=== PATIENT | female | born 1965 | race Caucasian/White ===

== ENCOUNTER 2020-01-04 13:33 | Outpatient (CLI) | payer BC, SELFPAY ==
--- NOTE | ~2020-01-04 | CT_ITS ---
EXAMINATION: CT abdomen pelvis w con DATE: 01/04/2020 14:00 INDICATION: Right lower quadrant abdominal pain. TECHNIQUE: Computed tomography (CT) of the abdomen and pelvis was performed with 100 mL Omnipaque 350 intravenous contrast. Automated exposure control and iterative reconstruction technique were employe d. The dose-length product was 436.51 mGy-cm. COMPARISON: None. FINDINGS: The visualized portions of the lung bases demonstrate minimal atelectasis. No pleural effus ion. The heart size is normal. No pericardial effusion. The liver, gallbladder, spleen, pancreas, adr enal glands, and kidneys are normal. There is diverticulosis of the colon without evidence of diverti culitis. There are no dilated loops of bowel. The appendix is normal. There are 2 supraumbilical vent ral hernias containing fat. There are no pathologically enlarged lymph nodes. There is no free intrap eritoneal fluid. There is moderate lumbar spondylosis. IMPRESSION: 1. Two supraumbilical ventral hernias containing fat. Reviewed, dictated and finalized at location A.
== END 2020-01-04 13:34 | disposition home or self-care (01) ==
PROVIDERS: PCP Family Medicine; Visit Provider Family Medicine
DX: K43.9 Ventral hernia without obstruction or gangrene (principal)
CPT/HCPCS: 74177; Q9967

== ENCOUNTER → 2020-01-22 07:58 | Outpatient (CLI) | payer BC, SELFPAY ==
--- NOTE | ~2020-01-22 | US_ITS ---
EXAMINATION: US pelvic complete EXAM DATE: 01/22/2020 10:13 INDICATION: Right lower quadrant pain. TECHNIQUE: Pelvic transabdominal and transvaginal sonogram was performed. There are multiple graysca le and Doppler images available for interpretation. There is no prior study for comparison. FINDINGS: Uterus measures 8.0 x 2.7 x 5.5 cm, and is morphologically normal. Endometrial stripe yaritza sures 4 mm, within normal limits. There is no free pelvic fluid. Right adnexa: The ovary measures 1.4 x 0.8 x 2.0 cm and is morphologically normal. Ovarian vascular f low confirmed. Left adnexa: The ovary measures 2.0 x 1.1 x 1.6 cm and is morphologically normal. Ovarian vascular fl ow confirmed. IMPRESSION: Unremarkable pelvic ultrasound exam. Reviewed, dictated and finalized at location A.
--- NOTE | ~2020-01-22 | US_ITS ---
EXAMINATION: US abdomen limited EXAM DATE: 01/22/2020 08:24 INDICATION: Right quadrant pain, tingling down leg. Nodules. TECHNIQUE: Multiple grayscale and Doppler images of the abdomen right upper quadrant were obtained (b y a technologist who performed the scan) and subsequently reviewed. There is no prior study for radha brownlee. FINDINGS: The pancreatic head and body are normal in appearance. The pancreatic tail is not visualized. The l iver has normal echogenicity and contour. There are no focal liver lesions identified. There is no evidence of intrahepatic biliary duct dilation. Portal venous flow was seen in the hepatopedal, nor mal direction and has normal Doppler waveform. No right-sided hydronephrosis. Common bile duct measures 3 mm, which is normal. The gallbladder wall is normal in thickness, with ex pected amount of distention. No sonographic evidence of pericholecystic fluid. There is no cholelit hiases. Technologist performing exam reports patient did not demonstrate sonographic Tillman's sign. Please note that this sign is less reliable in patients who have received pain medication. IMPRESSION: 1. Unremarkable abdominal ultrasound exam. Reviewed, dictated and finalized at location A.
== END ==
PROVIDERS: PCP Family Medicine; Visit Provider Family Medicine
DX: R10.31 Right lower quadrant pain (principal)
CPT/HCPCS: 76705; 76856

== ENCOUNTER 2020-02-10 16:15 | Emergency (ER) | payer BC, SELFPAY ==
--- NOTE | ~2020-02-10 | CT_ITS ---
EXAMINATION: CT abdomen pelvis w con EXAM DATE: 02/10/2020 20:19 INDICATION: Right sided abdominal and flank pain . TECHNIQUE: Spiral CT of the abdomen and pelvis was performed following intravenous injection of 100 m L Omnipaque 350. Axial, coronal and sagittal images were reviewed. The dose-length product (DLP) fo r this examination was 369.08 mGy-cm. The exposure was tailored according to patient size (auto mA e xposure control), and iterative reconstruction (ASIR) was used as additional dose reduction technique . Comparison is made to prior examination from 01/04/2020. FINDINGS: The liver, spleen, adrenal glands and pancreas are unremarkable. Gallbladder is unremarkab le. No biliary obstruction. Portal and splenic veins are patent. Kidneys enhance symmetrically. T here is no hydronephrosis. The uterus is unremarkable. The adnexa are unremarkable. The bladder is unremarkable. There is no retroperitoneal or pelvic lymphadenopathy. The appendix is normal. The stomach and small bowel are unremarkable. There is expected amount of c olonic stool. No free intraperitoneal gas. The heart is normal in size. There are no pericardial or pleural effusions. The lung bases are unremarkable. The bones are unremarkable. There are 2 sm all supraumbilical fat-containing hernias. There is no significant interval change. IMPRESSION: 1. No acute intra-abdominal findings. 2. Two small supraumbilical fat-containing hernias. Reviewed, dictated and finalized at location A.
[2020-02-10 16:36] LABS: Add Urine Microscopic? NO; Appearance Urine Clear (Clear); Bilirubin Urine Negative (Negative); Blood Urine Negative (Negative); Color Urine Colorless (Yellow); Glucose Urine UA Negative (Negative); Ketones Urine Negative (Negative); Leukocyte Esterase Ur Negative LEU/UL (Negative); Nitrate Urine Negative (Negative); Protein Urine Negative (Negative); Specific Grav Ur 1.006 (1.001-1.035); Urobilinogen Urine Negative mg/dL (<2.0)
[2020-02-10 16:42] VITALS: BP 135/89; PULSE 88; RESP 12; TEMP 36.2; O2SAT 99
[2020-02-10 16:57] LABS: Basophils Absolute Auto 0.1 K/mm3 (0.0-0.1); Basophils Percent Auto 0.8 % (0.2-1.2); Eosinophils Percent Auto 0.4 % (0-4.4); Hemoglobin 14.1 g/dL (12.0-15.0); Immature Granulocyte Absolute 0.02 K/mm3 (0.00-0.031); Immature Granulocyte Percent A 0.3 % (0-0.5); Lymphocytes Absolute Auto 2.26 K/mm3 (0.9-3.2); Lymphocytes Percent Auto 28.4 % (18.3-44.2); Mean Corpuscular HGB Conc 33.6 g/dl (32-36); Mean Corpuscular Hemoglobin 29.1 pg (26-34); Mean Corpuscular Volume 86.6 fl (80-100); Mean Platelet Volume 9.3 fl (7.4-10.4); Monocytes Absolute Auto 0.6 K/mm3 (0.1-0.6); Monocytes Percent Auto 7.3 % (2.6-8.5); Neutrophils Percent Auto 62.8 % (45.5-73.1); Platelet Count Result 305 k/mm3 (150-375); Red Blood Count 4.85 M/mm3 (4.2-5.4); Red Cell Distribution Width 12.6 % (11.5-14.5)
[2020-02-10 17:08] LABS: Alanine Aminotransferase 21 U/L (4-35); Albumin Level 4.8 g/dL (3.5-5.1); Alkaline Phosphatase 94 U/L (38-126); Anion Gap 9 mmol/L (8-16); Aspartate Amino Transferase 23 U/L (14-36); Bilirubin,Total 0.3 mg/dL (0.2-1.3); Blood Urea Nitrogen 12 mg/dL (7-17); Calcium 9.8 mg/dL (8.4-10.2); Carbon Dioxide 29 mmol/L (22-30); Chloride 98 mmol/L (98-107); Estimated CRCL calculation 66 ml/min; Estimated Glomerular Filt Rate > 60; Glucose 97 mg/dL (65-105); Lipase 71 U/L (23-300); Sodium 136 mmol/L (137-145)
[2020-02-10 18:03] VITALS: BP 127/78; PULSE 80; RESP 14; O2SAT 99
--- NOTE | 2020-02-10 18:11 | ED.ABDPAIN ---
HPI - Abdominal Pain General Chief Complaint: Abdominal Pain Stated Complaint: R ABD/FLANK PAIN Time Seen by Provider: 02/10/20 17:39 Source: patient Mode of arrival: ambulatory Limitations: no limitations History of Present Illness HPI narrative: Patient is a 54-year-old female who presents complaining of right-sided abdominal pain, flank pain, nausea and loose stools x2 months. She reports pain increasing in flank over the past week. She reports initially all abdominal cramping. She had CT and ultrasound per patient account which were negative. Patient denies vomiting. She denies fever. She denies taking stvl-orh-hdnejhd medications for pain. Patient reports that she has been awaiting referral from PCP to GI and reports pain increased so much today that she could not wait. MD elicited complaint: abdominal pain and flank pain Related Data Allergies Allergy/AdvReac Type Severity Reaction Status Date / Time No Known Allergies Allergy Verified 02/10/20 16:49 Review of Systems Review of Systems: Narrative: CONSTITUTIONAL: Denies fever, chills, or sweats. EYES: Denies visual changes, redness, or discharge. ENT: Denies rhinorrhea, congestion, sore throat, or otalgia. CARDIOVASCULAR: Denies chest pain, palpitations, or edema. RESPIRATORY: Denies cough or dyspnea. GASTROINTESTINAL: Reports right sided abdominal pain, nausea, and loose stools GENITOURINARY: Denies dysuria or hematuria. SKIN: Denies rash or itching. MUSCULOSKELETAL: Reports right back pain, denies joint pain, or myalgia. NEUROLOGIC: Denies headache, numbness, dizziness, or weakness. PSYCHIATRIC: Denies anxiety or depression. COUNTS INCLUDE 234 BEDS AT THE [facility] Past Medical History Medical History (Updated 02/10/20 @ 21:50 by JOHN Zapien) Emily's thyroiditis Mixed hyperlipidemia Personal history of colonic polyps Surgical History Surgical History Hx of tonsillectomy Family History Family History Mother Family history of thyroid disease Social History Social History Social History: Smoking status: Never smoker Second hand tobacco smoke exposure: No Alcohol intake: never Substance use: never Substance use type: does not use Additional occupation/education comments: pt works at home Gender identity (if verbalized by the patient): Female Exam Narrative: Exam Narrative: GENERAL: Well-appearing, well-nourished, and in no acute distress. HEAD: Normocephalic, atraumatic. EYES: No redness or drainage. Conjunctiva are normal. ENT: Mucous membranes pink and moist. CHEST: No respiratory distress. Clear to auscultation. HEART: Regular rate and rhythm. No murmur appreciated. Normal peripheral pulses. GI: Soft, nontender without rebound, or guarding. No distention. Bowel sounds normal in all quadrants. MUSCULOSKELETAL: No bony tenderness. EXTREMITIES: Normal range of motion. No edema. SKIN: Warm, dry, no rash. NEURO: No focal deficits. Alert and oriented x3. Gait steady. PSYCH: Normal affect. No signs of depression or anxiety. Course Vital Signs Vital signs: Vital Signs Temperature 36.2 C L 02/10/20 16:42 Pulse Rate 88 02/10/20 16:42 Respiratory Rate 12 02/10/20 16:42 Blood Pressure 135/89 02/10/20 16:42 Pulse Oximetry 99 02/10/20 16:42 Temperature 36.2 C L 02/10/20 16:42 Pulse Rate 74 02/10/20 21:00 Respiratory Rate 16 02/10/20 21:00 Blood Pressure 123/85 02/10/20 21:00 Pulse Oximetry 97 02/10/20 21:00 MDM - Abdominal Pain MDM Narrative Medical decision making narrative: Patients labs and CT scan show no gross abnormalities. Discussed with patient the need to follow-up with gastroenterology and orthopedics. Discussed with patient continuing with muscle relaxer that PCP gave her and adding Tylenol or ibuprofen for pain. April
--- NOTE | 2020-02-10 18:20 | ECG_ITS ---
Measurements Intervals [place] Rate: 64 P: 31 AL: 164 QRS: 22 QRSD: 87 T: -6 QT: 427 QTc: 441 Interpretive Statements SINUS RHYTHM BORDERLINE ST-T WAVE ABNORMALITY- ANTEROLAT/INF LEADS BORDERLINE ECG Electronically Signed On 02-10-2020 21:22:[address] D.O.
[2020-02-10] MEDS: SODIUM CHLORIDE 0.9% IV 1,000 ML 999 ML IV CONT (18:30)
[2020-02-10 18:54] LABS: Troponin I < 0.012 ng/mL (0.000-0.034)
[2020-02-10 20:09] VITALS: BP 131/76; PULSE 72; RESP 16; O2SAT 97
[2020-02-10 21:00] VITALS: BP 123/85; PULSE 74; RESP 16; O2SAT 97
[2020-02-10] MEDS: KETOROLAC 30 MG/ML VIAL (*BKC) IV PUSH (22:17)
[2020-02-10 22:25] VITALS: BP 127/79; PULSE 76; RESP 16; O2SAT 97
== END 2020-02-10 22:25 | disposition home or self-care (01) ==
PROVIDERS: Emergency Medicine; Emergency Provider Nurse Practitioner; PCP Family Medicine
DX: R10.9 Unspecified abdominal pain (principal); E06.3 Autoimmune thyroiditis; E78.2 Mixed hyperlipidemia; K42.9 Umbilical hernia without obstruction or gangrene; R94.31 Abnormal electrocardiogram [ECG] [EKG]
CPT/HCPCS: 36415; 74177; 80053; 81003; 83690; 84484; 85025; 93005; 96361; 96374; 99284; J1885; J7030; Q9967

== ENCOUNTER 2020-02-27 01:06 | Outpatient (CLI) | payer BC, SELFPAY ==
[2020-02-27 22:26] LABS: SARS-CoV-2 RNA PCR Negative
== END 2020-02-27 01:07 | disposition home or self-care (01) ==
LOC: ANHCOVIDDT 01:06
PROVIDERS: PCP Family Medicine; Visit Provider Internal Medicine Gastroenterology
DX: Z01.812 Encounter for preprocedural laboratory examination (principal); Z20.828 Contact with and (suspected) exposure to other viral communicable diseases
CPT/HCPCS: 87635; C9803; U0003

== ENCOUNTER 2020-03-02 01:02 | Day surgery (SDC) | payer BC, SELFPAY ==
[2020-02-25 15:10] VITALS: BMI 26.6
[2020-03-02 08:58] VITALS: BP 113/72; PULSE 74; RESP 18; TEMP 36.9; O2SAT 98; BMI 25.9
[2020-03-02] MEDS: LACTATED RINGERS 1,000 ML 150 ML IV CONT (09:05)
--- NOTE | 2020-03-02 09:20 | WPDANESEPPF ---
Anes - Initial Pre Proc Eval Procedure: Operation Date: 03/02/20 10:00 Proposed Procedures p Screening Colonoscopy - Sameer Fabian MD Date/Time: 03/02/20 09:20 Surgeon: Sameer Fabian MD Pre Op Diagnosis: neoplasm screening Patient Data Age: 54 Gender: F Height: 5 ft 6 in Weight: 73 kg Last Vital Signs Temp 36.9 C 03/02/20 08:58 Pulse 74 03/02/20 08:58 Resp 18 03/02/20 08:58 BP 113/72 03/02/20 08:58 Pulse Ox 98 03/02/20 08:58 Allergies Allergy/AdvReac Type Severity Reaction Status Date / Time No Known Allergies Allergy Verified 03/02/20 08:57 Home Medications Medication Instructions Recorded Confirmed Type levothyroxine 50 mcg tablet 50 mcg PO .COMPLEX #102 tablet 01/26/20 03/02/20 Rx calcium carb-Ca gluc 500 mg 1 tablet PO BID 02/22/20 02/25/20 History calcium-magnesium ox-Mg gluc 250 mg tablet cholecalciferol (vitamin D3) 25 25 mcg PO EVERY OTHER DAY 02/22/20 02/25/20 History mcg (1,000 unit) capsule omega-3 fatty acids 500 mg capsule 500 mg PO BID 02/22/20 02/25/20 History phytosterol combination no.1 500 500 mg PO DAILY 02/22/20 03/02/20 History mg capsule Glucosamine Chondroitin 2 tab-cap PO DAILY 02/25/20 02/25/20 History peg 3350-electrolytes 236 240 ml PO Q10M #4000 ml 02/25/20 Rx gram-22.74 gram-6.74 gram-5.86 gram solution Patient hx anesthesia problems: none Family hx anesthesia problems: none PMFSH Past Medical History Medical History Change in bowel habits Constipation Emily's thyroiditis Mixed hyperlipidemia Personal history of colonic polyps Surgical History Surgical History Hx of tonsillectomy Family History Family History Mother Family history of thyroid disease Social History Social History Social History: Smoking status: Never smoker Second hand tobacco smoke exposure: No Alcohol intake: current Substance use: never Substance use type: does not use Additional occupation/education comments: pt works at home Gender identity (if verbalized by the patient): Female Spiritual care concerns: No Anes - Eval Final PreProcedure Day of Procedure 03/02/20 09:20 Patient weight: overweight Heart: regular rate and rhythm Lungs: clear to auscultation Airway: Mallampati scale class II Neurological: alert and oriented Last oral intake: >/= 8 hours ASA classification: II Emergent: no Anesthetic plan: proceed Anesthesia type and monitoring: general GIVS and standard monitoring Informed Consent: The patient's anesthetic plan and its attendant risks and benefits were discussed with the patient/family/POA. Questions were solicited and answers provided to the satisfaction of the patient/family/POA.
--- NOTE | 2020-03-02 10:03 | WPDHPUPDATE1 ---
History and Physical Update Update Date/Time: 03/02/20 10:03 History and Physical has been reviewed, including an updated exam of the patient. There are NO changes in the patient's condition. Risks, benefits, and alternatives have been discussed and questions answered. Patient agrees to proceed with procedure.
[2020-03-02 10:28] VITALS: BP 96/68; PULSE 59; RESP 22; O2SAT 98
[2020-03-02 10:38] VITALS: BP 97/66; PULSE 54; RESP 16; O2SAT 97
[2020-03-02 10:48] VITALS: BP 102/70; PULSE 55; RESP 17; O2SAT 100
== END 2020-03-02 10:56 | disposition home or self-care (01) ==
PROVIDERS: PCP Family Medicine; Visit Provider Internal Medicine Gastroenterology
PROC: 0DJD8ZZ Inspection of Lower Intestinal Tract, Via Natural or Artificial Opening Endoscopic (ICD-10-PCS; CPT 45378; principal; 2020-03-02 10:00)
DX: R10.31 Right lower quadrant pain (principal); R19.7 Diarrhea, unspecified; K59.00 Constipation, unspecified; K57.30 Diverticulosis of large intestine without perforation or abscess without bleeding; K64.8 Other hemorrhoids; E06.3 Autoimmune thyroiditis; E78.2 Mixed hyperlipidemia; Z86.010 Personal history of colon polyps
CPT/HCPCS: 45378; J2001; J2704; J7120

== ENCOUNTER 2020-05-03 08:37 | Outpatient (CLI) | payer BC, SELFPAY ==
--- NOTE | ~2020-05-03 | MM_ITS ---
EXAMINATION: MM screening [facility] BI w ayaz HISTORY: Screening TECHNIQUE: Craniocaudal and mediolateral oblique 3-D tomosynthesis images were obtained and synthetic 2-D images were generated. CAD analysis was submitted and interpreted. COMPARISON: Comparison to multiple prior studies sequentially, with oldest reviewed study dated 11/18. BREAST PARENCHYMAL COMPOSITION: There are scattered areas of fibroglandular density. FINDINGS: There is focal asymmetry laterally in the right breast on CC view, possibly presenting arch itectural distortion. The left breast is stable without evidence for malignancy. IMPRESSION: 1. Possible architectural distortion lateral aspect of the right breast, middle third. 2. Additional mammographic views and possible breast ultrasound are recommended. BI-RADS Category 0: Incomplete: Needs additional imaging evaluation. Reviewed, dictated and finalized at location A. UREMENT SPECIALIST IMPRESSION: 1. Possible architectural distortion lateral aspect of the right breast, middle third. 2. Additional mammographic views and possible breast ultrasound are recommended . BI-RADS Category 0: Incomplete: Needs additional imaging evaluation.
== END 2020-05-03 08:38 | disposition home or self-care (01) ==
PROVIDERS: PCP Family Medicine; Visit Provider Family Medicine
DX: Z12.31 Encounter for screening mammogram for malignant neoplasm of breast (principal); R92.8 Other abnormal and inconclusive findings on diagnostic imaging of breast
CPT/HCPCS: 77063; 77067

== ENCOUNTER 2020-05-05 11:08 | Outpatient (CLI) | payer BC, SELFPAY ==
--- NOTE | ~2020-05-05 | MMUS_ITS ---
EXAMINATION: MM diagnostic mammo unilat RT, US breast RT limited HISTORY: Follow-up possible architectural distortion of the right breast TECHNIQUE: Additional 3-D tomosynthesis images of the right breast were performed and synthetic 2-D i mages were generated. CAD analysis was submitted and interpreted. High resolution right breast ultras ound was performed. COMPARISON: Comparison to multiple prior studies sequentially, with oldest reviewed study dated 01/20. BREAST PARENCHYMAL COMPOSITION: Breast composed of scattered areas of fibroglandular density. FINDINGS: MAMMOGRAPHIC FINDINGS: There are no suspicious masses, calcifications or architectural distortion in the right breast to sug gest malignancy. ULTRASOUND: Limited Limited right breast ultrasound: Normal heterogeneous echotexture without focal solid or cyst ic mass. IMPRESSION: 1. No mammographic or sonographic evidence for malignancy in the right breast. 2. Routine yearly screening mammogram and regular clinical breast examination are recommended. BI-RADS Category 1: Negative Reviewed, dictated and finalized at location A. 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 No mammographic or sonographic evidence for malignancy in the right breast. 2. Routine yearly screening mammogram and regular clinical breast examination a re recommended. BI-RADS Category 1: Negative
== END 2020-05-05 11:09 | disposition home or self-care (01) ==
PROVIDERS: PCP Family Medicine; Visit Provider Physician Assistant
DX: R92.8 Other abnormal and inconclusive findings on diagnostic imaging of breast (principal)
CPT/HCPCS: 76642; 77065

== ENCOUNTER → 2020-07-19 00:26 | Outpatient (CLI) | payer BC, SELFPAY ==
[2020-07-19 18:31] LABS: SARS-CoV-2 RNA PCR Negative
== END ==
PROVIDERS: PCP Family Medicine; Visit Provider Internal Medicine Gastroenterology
DX: Z01.812 Encounter for preprocedural laboratory examination (principal); Z20.822 Contact with and (suspected) exposure to COVID-19
CPT/HCPCS: C9803; U0003; U0005

== ENCOUNTER 2020-07-22 04:43 | Day surgery (SDC) | payer BC, SELFPAY ==
[2020-07-18 10:53] VITALS: BMI 26.5
[2020-07-22 09:08] VITALS: BP 113/78; PULSE 77; RESP 16; TEMP 36.8; O2SAT 100
[2020-07-22] MEDS: LACTATED RINGERS 1,000 ML 150 ML IV CONT (09:20)
--- NOTE | 2020-07-22 10:16 | WPDANESEPPF ---
Anes - Initial Pre Proc Eval Procedure: Operation Date: 07/22/20 10:30 Proposed Procedures p Esophagogastroduodenoscopy - Sameer Fabian MD Date/Time: 07/22/20 10:16 Surgeon: Sameer Fabian MD Pre Op Diagnosis: epigastric pain Patient Data Age: 54 Gender: F Height: 5 ft 6 in Weight: 60.3 kg Last Vital Signs Temp 98.2 F 07/22/20 09:08 Pulse 77 07/22/20 09:08 Resp 16 07/22/20 09:08 BP 113/78 07/22/20 09:08 Pulse Ox 100 07/22/20 09:08 Allergies Allergy/AdvReac Type Severity Reaction Status Date / Time No Known Allergies Allergy Verified 07/22/20 09:06 Home Medications Medication Instructions Recorded Confirmed Type calcium carb-Ca gluc 500 mg 1 tablet PO BID 02/22/20 07/22/20 History calcium-magnesium ox-Mg gluc 250 mg tablet cholecalciferol (vitamin D3) 25 25 mcg PO EVERY OTHER DAY 02/22/20 07/22/20 History mcg (1,000 unit) capsule omega-3 fatty acids 500 mg capsule 500 mg PO DAILY 02/22/20 07/22/20 History rifaximin 550 mg tablet 550 mg PO TID 14 Days #42 tablet 07/13/20 07/22/20 Rx levothyroxine 50 mcg tablet 50 mcg PO .COMPLEX #102 tablet 07/17/20 07/22/20 Rx Adaptocrine 78 mg PO BID 07/18/20 07/22/20 History Coqnol 200 mg PO DAILY 07/18/20 07/22/20 History Dhea 5 mg PO BID 07/18/20 07/22/20 History Pregnenolone 30 mg PO BID 07/18/20 07/22/20 History Pro-Cap Collagen 10 g PO DAILY 07/18/20 07/22/20 History [id number]-hut-jzhu-FA-vit K 1 tablet PO DAILY 07/18/20 07/22/20 History [Adults Multivitamin] Patient hx anesthesia problems: none Family hx anesthesia problems: none PMFSH Past Medical History Medical History (Updated 07/13/20 @ 14:41 by Sameer Fabian MD) Change in bowel habits Colon cancer screening Constipation Epigastric pain Functional burping disorder Emily's thyroiditis Mixed hyperlipidemia Personal history of colonic polyps Small intestinal bacterial overgrowth (SIBO) Surgical History Surgical History Hx of tonsillectomy Family History Family History Mother Family history of thyroid disease Social History Social History Social History: Smoking status: Never smoker Second hand tobacco smoke exposure: No Alcohol intake: never Substance use: never Substance use type: does not use Living arrangements: with family Additional occupation/education comments: pt works at home Gender identity (if verbalized by the patient): Female Spiritual care concerns: No Anes - Eval Final PreProcedure Day of Procedure 07/22/20 10:16 Patient weight: normal Heart: regular rate and rhythm Lungs: clear to auscultation Airway: Mallampati scale class II Neurological: alert and oriented Last oral intake: >/= 8 hours ASA classification: II Emergent: no Anesthetic plan: proceed Anesthesia type and monitoring: general GIVS and standard monitoring Informed Consent: The patient's anesthetic plan and its attendant risks and benefits were discussed with the patient/family/POA. Questions were solicited and answers provided to the satisfaction of the patient/family/POA.
--- NOTE | 2020-07-22 10:36 | WPDHPUPDATE1 ---
History and Physical Update Update Date/Time: 07/22/20 10:36 History and Physical has been reviewed, including an updated exam of the patient. There are NO changes in the patient's condition. Risks, benefits, and alternatives have been discussed and questions answered. Patient agrees to proceed with procedure.
[2020-07-22] MEDS: BENZOCAINE (*SP) 60 ML SPRAY CAN (HURRICAINE) 1 SPRAY MUCOUS MEM (10:38)
[2020-07-22 10:48] VITALS: BP 91/61; PULSE 52; RESP 18; O2SAT 99
--- NOTE | 2020-07-22 10:54 | SUR.PHASEII ---
Pt's (Marcela) updated on pt condition. Pt spouse states she will come in to post op.
[2020-07-22 10:58] VITALS: BP 100/64; PULSE 47; RESP 19; O2SAT 99
[2020-07-22 11:08] VITALS: BP 103/64; PULSE 44; RESP 19; O2SAT 100
== END 2020-07-22 11:27 | disposition home or self-care (01) ==
PROVIDERS: PCP Family Medicine; Visit Provider Internal Medicine Gastroenterology
PROC: 0DJ08ZZ Inspection of Upper Intestinal Tract, Via Natural or Artificial Opening Endoscopic (ICD-10-PCS; CPT 43235; principal; 2020-07-22 10:30)
DX: R10.13 Epigastric pain (principal); K44.9 Diaphragmatic hernia without obstruction or gangrene; K29.50 Unspecified chronic gastritis without bleeding; R10.31 Right lower quadrant pain; R14.0 Abdominal distension (gaseous); E06.3 Autoimmune thyroiditis; E78.2 Mixed hyperlipidemia
CPT/HCPCS: 43239; 88305; J2704; J7120

== ENCOUNTER 2021-01-17 11:36 | Outpatient (CLI) | payer BC, SELFPAY ==
--- NOTE | ~2021-01-17 | XR_ITS ---
EXAMINATION: XR lumbar spine 6V w bending DATE: 01/17/2021 12:02 INDICATION: Low back pain TECHNIQUE: Anteroposterior, lateral in neutral, flexion and extension, and bilateral oblique views of the lumbar spine, and cone-down lateral view of the lumbosacral junction were obtained. COMPARISON: None. FINDINGS: There are 2 mm of retrolisthesis of L5 on S1. No laxity is present with flexion or extensio n. The vertebral body heights are maintained. There is no fracture. There is mild loss of interverteb ral disc space height at L4-5 and L5-S1. Small degenerative osteophytes project from the anterior end plates of multiple vertebral bodies. There is mild facet osteoarthritis of the lower lumbar spine. IMPRESSION: 1. Mild lumbar spondylosis without acute findings. Reviewed, dictated and finalized at location A.
== END 2021-01-17 11:37 | disposition home or self-care (01) ==
PROVIDERS: PCP Family Medicine; Visit Provider Family Medicine
DX: M47.816 Spondylosis without myelopathy or radiculopathy, lumbar region (principal)
CPT/HCPCS: 72114

== ENCOUNTER 2021-04-02 12:20 | Outpatient (CLI) | payer BC, SELFPAY ==
--- NOTE | ~2021-04-02 | MR_ITS ---
EXAMINATION: MR brain/brain stem wo con EXAM DATE: 04/02/2021 13:32 INDICATION: Visual disturbance. TECHNIQUE: Magnetic resonance imaging (MRI) of the brain/brain stem obtained without contrast. Sagitt al T1, axial diffusion, gradient echo (T2*), T1, T2, FLAIR sequences obtained. There is no prior st udy for comparison. FINDINGS: Cystic region in the right frontoparietal white matter with single septation inside. No russ rounding edema. This measures 2.2 cm craniocaudal dimension by 0.8 cm transverse dimension. Wall appe ars thin and there is no mural nodule identified making cystic malignancy unlikely. Differential diag nosis includes dilated perivascular space, neural glial cyst, porencephalic cyst, neurocysticercosis (vesicular stage). There are no areas of restricted diffusion to suggest acute infarction. There is no acute hemorrhage seen on the T2*, a hemosiderin sensitive sequence. The ventricles are normal in size. There are no extra-axial collections. Flow voids are seen in the cerebral arteries on the T2-weighted sequences consistent with their expected patency. The orbits are unremarkable. Soft tissue is unremarkable. IMPRESSION: Cystic lesion right frontoparietal white matter without wall thickening, nodularity, asso ciated vasogenic edema. 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 Recommend 3-6 month follow-up brain MRI (with contrast). This is probably incidental and unrelated to patient's symptoms. Reviewed, dictated and finalized at location B. RUNNER IMPRESSION: Cystic lesion right frontoparietal white matter without wall thicke lawrence, nodularity, associated vasogenic edema. 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 Recommend 3-6 month fo llow-up brain MRI (with contrast). This is probably incidental and unrelated to patient's symptoms.
== END 2021-04-02 12:21 | disposition home or self-care (01) ==
PROVIDERS: PCP Family Medicine; Visit Provider Family Medicine
DX: R51.9 Headache, unspecified (principal); R26.89 Other abnormalities of gait and mobility; H53.8 Other visual disturbances; G93.0 Cerebral cysts
CPT/HCPCS: 70551

== ENCOUNTER 2021-05-24 08:45 | Outpatient (CLI) | payer BC, SELFPAY ==
--- NOTE | ~2021-05-24 | MM_ITS ---
EXAMINATION: MM screening [facility] BI w ayaz HISTORY: Screening mammogram TECHNIQUE: Craniocaudal and mediolateral oblique 3-D tomosynthesis images were obtained and synthetic 2-D images were generated. CAD analysis was submitted and interpreted. COMPARISON: 05/05/2020, 05/03/2020, 04/08/2019 BREAST PARENCHYMAL COMPOSITION: There are scattered areas of fibroglandular density. FINDINGS: There is no evidence of suspicious mass, calcification, or architectural distortion to sugg est malignancy in either breast. There has been no suspicious interval change. IMPRESSION: 1. No mammographic evidence of malignancy. 2. Recommend routine screening mammography in one year. BI-RADS Category 1: Negative Reviewed, dictated and finalized at location A. 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
== END 2021-05-24 08:46 | disposition home or self-care (01) ==
LOC: ANHIMG 08:47
PROVIDERS: PCP Family Medicine; Visit Provider Nurse Practitioner
DX: Z12.31 Encounter for screening mammogram for malignant neoplasm of breast (principal)
CPT/HCPCS: 77063; 77067

== ENCOUNTER 2021-07-07 14:45 | Outpatient (CLI) | payer BC, SELFPAY ==
--- NOTE | ~2021-07-07 | US_ITS ---
EXAMINATION: US thyroid DATE: 07/07/2021 15:23 INDICATION: Thyroid nodule. TECHNIQUE: Multiple ultrasound images of the thyroid were obtained. COMPARISON: None. FINDINGS: The right thyroid lobe measures 4.7 x 2.1 x 1.9 cm. The left thyroid lobe measures 4.3 x 1.0 x 0.8 c m. The thyroid demonstrates areas of heterogeneous echogenicity without discrete nodule. Vascularity is increased. IMPRESSION: 1. Heterogeneous, hypervascular thyroid, likely chronic lymphocytic (Emily) thyroiditis. Reviewed, dictated and finalized at location A.
== END 2021-07-07 14:46 | disposition home or self-care (01) ==
PROVIDERS: PCP Family Medicine; Visit Provider Chiropractor
DX: E04.1 Nontoxic single thyroid nodule (principal)
CPT/HCPCS: 76536

== ENCOUNTER → 2022-04-11 12:39 | Outpatient (CLI) | payer BC, SELFPAY ==
--- NOTE | ~2022-04-11 | MR_ITS ---
MRI of the right knee Clinical history: Medial meniscal tear Technique: Coronal proton density and proton density-weighted images, sagittal proton-density and T2 fat-sat images, and axial proton-density fat-saturated images were acquired. Findings: Anterior and posterior cruciate ligaments are intact. Medial collateral ligament and the la teral collateral ligament complex are intact. Popliteus tendon is intact. There is horizontal cleavage tear of the posterior horn of the medial meniscus extending to the free edge. No lateral meniscal tear seen. There is patchy moderate chondromalacia of the medial femoral condyle. There is moderate chondromalac ia along the medial patellar facet. Remaining articular cartilage is well preserved throughout the kn ee. Bone marrow signals are essentially unremarkable. Extensor mechanism is intact. Minimal joint fluid present. No Viramontes's cyst. Impression: Horizontal tear of the posterior horn of the medial meniscus. Mild chondromalacia, as detailed above. Reviewed, dictated and finalized at [facility]. L MACHINE BINDERY OPERATOR Impression: Horizontal tear of the posterior horn of the medial meniscus. Mild chondromalacia, as detailed above.
== END ==
DX: S83.241A Other tear of medial meniscus, current injury, right knee, initial encounter (principal); S83.411A Sprain of medial collateral ligament of right knee, initial encounter; X58.XXXA Exposure to other specified factors, initial encounter
CPT/HCPCS: 73721

== ENCOUNTER 2022-06-04 13:59 | Outpatient (CLI) | payer BC, SELFPAY ==
--- NOTE | ~2022-06-04 | MM_ITS ---
EXAMINATION: MM screening isela BI w ayaz HISTORY: Screening mammogram TECHNIQUE: Craniocaudal and mediolateral oblique 3-D tomosynthesis images were obtained and synthetic 2-D images were generated. CAD analysis was submitted and interpreted. COMPARISON: May 24, 2021 bilateral screening mammogram May 05, 2020 diagnostic right mammogram and limited right breast ultrasound May 03, 2020, April 08, 2019 bilateral screening mammogram examinations BREAST PARENCHYMAL COMPOSITION: There are scattered areas of fibroglandular density. FINDINGS: There is no evidence of suspicious mass, calcification, or architectural distortion to sugg est malignancy in either breast. There has been no suspicious interval change. IMPRESSION: 1. No mammographic evidence of malignancy. 2. Recommend routine screening mammography in one year. BI-RADS Category 1: Negative Reviewed, dictated and finalized at location A. NDS GRADER
== END 2022-06-04 14:00 | disposition home or self-care (01) ==
LOC: ANHIMG 14:02
PROVIDERS: PCP Family Medicine; Visit Provider Obstetrics & Gynecology Gynecology
DX: Z12.31 Encounter for screening mammogram for malignant neoplasm of breast (principal)
CPT/HCPCS: 77063; 77067

== ENCOUNTER 2023-08-12 15:25 | Outpatient (CLI) | payer BC, SELFPAY ==
--- NOTE | ~2023-08-12 | MM_ITS ---
EXAMINATION: MM screening isela BI w ayaz HISTORY: Screening mammogram TECHNIQUE: Craniocaudal and mediolateral oblique 3-D tomosynthesis images were obtained and synthetic 2-D images were generated. CAD analysis was submitted and interpreted. COMPARISON: June 04, 2022, May 24, 2021 bilateral screening mammogram examinations BREAST PARENCHYMAL COMPOSITION: There are scattered areas of fibroglandular density. FINDINGS: There is no evidence of suspicious mass, calcification, or architectural distortion to sugg est malignancy in either breast. There has been no suspicious interval change. IMPRESSION: 1. No mammographic evidence of malignancy. 2. Recommend routine screening mammography in one year. BI-RADS Category 1: Negative Reviewed, dictated and finalized at location A.
== END 2023-08-12 15:26 | disposition home or self-care (01) ==
LOC: ANHIMG 15:27
PROVIDERS: PCP Family Medicine; Visit Provider Obstetrics & Gynecology Gynecology
DX: Z12.31 Encounter for screening mammogram for malignant neoplasm of breast (principal)
CPT/HCPCS: 77063; 77067

== ENCOUNTER 2024-08-12 15:13 | Outpatient (CLI) | payer BC, SELFPAY ==
--- NOTE | ~2024-08-12 | MM_ITS ---
EXAMINATION: MM screening isela BI w ayaz HISTORY: Screening TECHNIQUE: Craniocaudal and mediolateral oblique 3-D tomosynthesis images were obtained and synthetic 2-D images were generated. CAD analysis was submitted and interpreted. COMPARISON: Comparison to multiple prior studies sequentially, with oldest reviewed study dated 03/22. BREAST PARENCHYMAL COMPOSITION: Dense: The breasts are extremely dense, which lowers the sensitivity of mammography. FINDINGS: There is no evidence of suspicious mass, calcification, or architectural distortion to sugg est malignancy in either breast. There has been no suspicious interval change. IMPRESSION: 1. No mammographic evidence of malignancy. 2. Recommend routine screening mammography in one year. BI-RADS Category 1: Negative Reviewed, dictated and finalized at location A.
--- OUTSIDE RECORDS SUMMARY | 2024-08-12 17:13 | XMS_ITS | Clinical Summary ---
Author Organization [facility] Address [address] [place] [address] Care Team Providers Care Patient Service Specialist Name Role Phone Unavailable Primary Care Provider Unavailabl e Source Comments [email or web address],non-owned Affiliates and Associated Physician Practices is amultiple site organization consisting of ambulatory clinics and hospital sitesin [place], [place], [place] and [place]. This disclosure is being madepursuant to the Care Everywhere program and may not contain all information available regarding this patient. 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 Gender Identity Not on file Sexual Orientation Not on file Plan of Treatment Health Maintenance Due Date Last Done Comments COLOGUARD (AGES 45-75) - COL ON CA SCREENING 1966 COLON MONITORING 1966 COLONOSCOPY - COLON CA SCREENING 1966 CT COLONOGRAPHY - COLON CA SCREENING 1966 Colorectal Cancer Screening 1966 FIT - COLON CA SCREENING 1966 FLEX SIG - COLON CA SCREENING 1966 LIPID TESTING 1966 MAMMOGRAM 1966 PAP SMEAR 1966 HIV SCREENING 1981 HEPATITIS C SCREENING 12/18/1984 DTAP/TDAP/TD VACCINES (1 - Tdap) 1985 HEPATITIS B VACCINE (1 of 3 - 19+ 3-dose series) 1985 PNEUMOCOCCAL VACCINE 50+ (1 of 1 - PCV) 2016 ZOSTER VACCINE (1 of 2) 2016 COVID-19 VACCINE ( - 2023-2 5 season) 2023 DEPRESSION SCREENING 04/22/2024 INFLUENZA VACCINE (Season Ended) 2024 HIB VACCINE Aged Out No longer eligi ble based on patient's age to complete this topic HPV VACCINE Aged Out No longer eligi ble based on patient's age to complete this topic MENINGOCOCCAL (Group B) VACC INE SHARED DECISION-MAKING Aged Out No longer eligibl e based on patient's age to complete this topic MENINGOCOCCAL GROUPS A/C/Y/W VACCINE Aged Out No longer eligible b ased on patient's age to complete this topic PNEUMOCOCCAL VACCINE Aged Out No long er eligible based on patient's age to complete this topic Insurance [facility]
--- OUTSIDE RECORDS SUMMARY | 2024-08-12 17:13 | XMS_ITS | Referral Summary ---
Author Organization [facility] Address [address] [place] [address] Care Team Providers Care Recovery Manager Name Role Phone Tina Nunez MD Primary Care Provider Allergies No known active allergies Medications levothyroxine (SYNTHROID) 50 mcg tablet TAKE 1 TABLET BY MOUTH DAILY SATURDAY TO AND TAKE 2 TABLETS BY MOUTH EACH Saturday 2 Active multivitamin-minera ls-lutein (Multivitamin 50 Plus) tablet Take 1 tablet by mouth daily Active garlic 400 mg tablet Take 1 tablet by mouth daily Active turmeric root extract 500 mg capsule Take 600 mg by mouth daily Active NOT IN DATABASE, PRESCRIPTION, Drug name: Biomega Dose: 2.28 g Route: oral Frequency: daily Duration: Active NOT IN DATABASE, PRESCRIPTION, Drug name: Proteal Dose: 200 Route: oral Frequency: daily Duration: Active calcium carbonate (CALCIUM 500 ORAL) Take 800 mg by mouth daily Active cholecalciferol (VITAMIN D-3) 5,000 unit capsule Take 1 capsule (5,000 Units total) by mouth daily Active ascorbic acid (VITAMIN C) 1,000 mg tablet Take 2,400 mg by mouth daily Active aspirin 81 mg chewable tabletIndications:p revention of thrombosis Take 1 tablet (81 mg total) by mouth 2 (two) times a day 60 tablet 3 Active docusate sodium (COLACE) 100 mg capsuleIndications: constipation Take 1 capsule (100 mg total) by mouth 2 (two) times a day 60 capsule 3 Active ondansetron ODT (ZOFRAN-ODT) 4 mg disintegrating tabletIndications:P revention of Post-Operative Nausea and Vomiting Take 1 tablet (4 mg total) by mouth every 8 (eight) hours as needed for nausea or vomiting 10 tablet 3 Active HYDROcodone-acetami nophen (NORCO) 5-325 mg per tabletIndications:P ain Take 1 tablet by mouth every 8 (eight) hours as needed for pain for up to 25 doses 25 tablet 3 Active Active Problems Problem Noted Date Diagnosed Date S/P arthroscopic partial medial meniscectomy Overview (05/09/2022): Added automatically from request for surgery [id number] Tear of medial meniscus of right knee, current 1 06/06/2021 Sprain of medial collateral ligament of right kn ee 04/05/2022 Brain cyst 05/01/2021 08/28/2022 Social History Tobacco Use Types Packs/Day Years Used Date Smoking Tobacco: Never Tobacco Cessation:Counseling Given: Not Answered AUDIT-C Answer Date Recorded Q1: How often do you have a drink containing alc ohol? Monthly or less 07/09/2022 Q2: How many drinks containi ng alcohol do you have on a typical day when you are drinking? 1 or 2 07/09/2022 Q3: How often do you have si x or more drinks on one occasion? Never 07/09/2022 Personal Safety Answer Date Recorded Have you ever been in or are you currently in a harmful physical or emotional relationship or is someone making you feel afraid or unsafe? 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 Not on file Not on file Last Filed Vital Signs Vital Sign Reading Time Taken Comments Blood Pressure 109/73 07/09/2022 10:53 AM CDT Pulse 69 07/09/2022 10:53 AM CDT Temperature 36.5 C (97.7 F) 07/09/2022 9:05 AM CDT Respiratory Rate 16 07/09/2022 10:53 AM CDT Oxygen Saturation 94% 07/09/2022 10:53 AM CDT Inhaled Oxygen Concentration - - Weight 78 kg (172 lb) 08/28/2022 8:02 AM CDT Height 165.1 cm (5' 5 ) 08/28/2022 8:02 AM CDT Body Mass Index 28.62 08/28/2022 8:02 AM CDT Plan of Treatment Not on file [place] Care Teams Recovery Manager Relationship Specialty Start Date End Date Tina Nunez MD [address] [place] [address] PCP - General Family Medicine 03/23/22
--- OUTSIDE RECORDS SUMMARY | 2024-08-12 17:13 | XMS_ITS | Clinical Summary ---
Author Organization [facility] Address [address] [place] [address] Care Team Providers Care Cardiopulmonary Technologist Name Role Phone Tina Nunez MD Primary [...] (05/09/2022): Added automatically from request for surgery [id number] Tear of medial meniscus of right knee, current 1 06/06/2021 Sprain of medial collateral ligament of right kn ee 04/05/2022 Brain cyst 05/01/2021 08/28/2022 Surgical History Surgery Date Site/Laterality Comments TONSILLECTOMY 04/22/1969 - 04/21/1970 COLONOSCOPY KNEE SURGERY Medical History Medical History Date Comments Thyroid disease Hypothyroidism Acute lateral meniscus tear of right knee 05/2022 Post-menopausal 05/2022 > 1 year since h aving cycles COVID-19 virus infection 06/23/2022 Resolvi ng per pt. Is afebrile, and has a residual dry cough, and nasal congestion. Surgeon aware. Cough Resolving. R/T r ecent COVID infection. 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 Not on file Obstetrics History Last Filed Vital Signs Vital Sign Reading [...] 08/28/2022 8:02 AM CDT Plan of Treatment Health Maintenance Due Date Last Done Comments Breast Cancer Screening-Mammogram 1966 Cervical Cancer Screening 1966 Colon Cancer Screening-Colonoscopy 1966 Depression Screening 1966 Hepatitis C Screening 1966 Hepatitis B Screening 1984 Regular Well Visit/Exam 18-64 1984 Zoster Vaccine (1 of 2) 2016 Covid-19 Vaccine ( - season) 2023 07/11/2020 Influenza Vaccine (Season Ended) 2024 03/10/2020, 02/16/2019, 02/05/2018, Additional history exists DTaP/Tdap/Td Vaccine (2 - Td or Tdap) 02/16/2029 02/16/2019 Pneumococcal vaccine <65 Aged Out No longer eligible based on patient's age to complete this topic [place] Care Teams Cardiopulmonary Technologist Relationship Specialty Start Date End Date Tina Nunez MD [address] [facility] [address] [place], [place] [id number] PCP - General Family Medicine 03/23/22
--- OUTSIDE RECORDS SUMMARY | 2024-08-12 17:13 | XMS_ITS | Clinical Summary ---
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 Gender Identity Not on file Sexual Orientation Not on file Last Filed Vital Signs Vital Sign Reading Time Taken Comments Blood Pressure 136/82 05/01/2021 8:38 AM UROGYNAECOLOGIST Pulse 60 05/01/2021 8:38 AM UROGYNAECOLOGIST Temperature 36.9 C (98.4 F) 05/01/2021 8:38 AM UROGYNAECOLOGIST Respiratory Rate 12 08/31/2021 2:26 PM CDT Oxygen Saturation 98% 05/01/2021 8:38 AM UROGYNAECOLOGIST Inhaled Oxygen Concentration - - Weight 73.3 kg (161 lb 9.6 oz) 08/31/2021 2:26 P M CDT Height 167.6 cm (5' 6 ) 08/31/2021 2:26 PM CDT Body Mass Index 26.08 08/31/2021 2:26 PM CDT Plan of Treatment Health Maintenance Due Date Last Done Comments DTAP/TDAP/TD VACCINES (1 - Tdap) 1985 HEPATITIS B VACCINES (1 of 3 - 19+ 3-dose series) 06/1985 HPV/Cotest (21-29) 12/24/1987 PAP SMEAR 12/24/1987 CERVICAL CANCER SCREENING 1996 HPV/Cotest (30-65) 1996 PAP SMEAR 1996 BREAST CANCER SCREENING 2006 COLORECTAL SCREENING 12/24/2011 Colorectal Cancer Screening 12/24/2011 FIT-DNA Q 3 years 12/24/2011 FIT/FOBT Q 1 year 12/24/2011 Flex Sig/CT Colonography Q 5 years 12/24/2011 ZOSTER VACCINE (1 of 2) 2016 INFLUENZA VACCINE (#1) 2023 Insurance [employer] BLUE PREFERRED Care Teams Bag Tester Relationship Specialty Start Date End Date Tina Nunez MD PCP - General Family Practice 05/04/21
== END 2024-08-12 15:14 | disposition home or self-care (01) ==
LOC: ANHIMG 15:14
PROVIDERS: PCP Family Medicine; Visit Provider Nurse Practitioner
DX: Z12.31 Encounter for screening mammogram for malignant neoplasm of breast (principal)
CPT/HCPCS: 77063; 77067

== ENCOUNTER 2025-03-03 13:16 | Outpatient (CLI) | payer BC, SELFPAY ==
--- NOTE | ~2025-03-03 | MMUS_ITS ---
EXAMINATION: US breast LT limited, MM diagnostic isela LT w ayaz HISTORY: Breast pain TECHNIQUE: Additional 3-D tomosynthesis images of the left breast were performed and synthetic 2-D images were generated. CAD analysis was submitted and interpreted. High resolution Limited left breast ultrasound was performed. COMPARISON: Comparison to multiple prior studies sequentially, with oldest reviewed study dated 05/03/2020. BREAST PARENCHYMAL COMPOSITION: Not dense: There are scattered areas of fibroglandular density. FINDINGS: MAMMOGRAPHIC FINDINGS: There are no suspicious masses, calcifications or architectural distortion in the left breast to suggest malignancy. ULTRASOUND: Limited left breast ultrasound: At 1:00, 5 cm from the nipple there is a 5 mm cyst. At 2:00, 3 cm from the nipple there is mildly prominent duct. No suspicious masses are identified in the left breast by ultrasound to suggest malignancy. IMPRESSION: 1. No evidence for malignancy in the left breast. Benign findings. 2. Routine yearly screening mammogram and regular clinical breast examination are recommended. BI-RADS Category 2: Benign finding(s). Reviewed, dictated and finalized at location B. ICAL REHABILITATION SPECIALIST IMPRESSION: 1. No evidence for malignancy in the left breast. Benign findings. 2. Routine yearly screening mammogram and regular clinical breast examination a re recommended. BI-RADS Category 2: Benign finding(s).
--- OUTSIDE RECORDS SUMMARY | 2025-03-03 14:19 | XMS_ITS | Clinical Summary ---
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 Gender Identity Not on file Sexual Orientation Not on file Last Filed Vital Signs Vital Sign Reading Time Taken Comments Blood Pressure 136/82 05/01/2021 8:38 AM NOVELTY PRINTING MACHINE OPERATOR Pulse 60 05/01/2021 8:38 AM NOVELTY PRINTING MACHINE OPERATOR Temperature 36.9 C (98.4 F) 05/01/2021 8:38 AM NOVELTY PRINTING MACHINE OPERATOR Respiratory Rate 12 08/31/2021 2:26 PM CDT Oxygen Saturation 98% 05/01/2021 8:38 AM NOVELTY PRINTING MACHINE OPERATOR Inhaled Oxygen Concentration - - Weight 73.3 kg (161 lb 9.6 oz) 08/31/2021 2:26 P M CDT Height 167.6 cm (5' 6) 08/31/2021 2:26 PM CDT Body Mass Index 26.08 08/31/2021 2:26 PM CDT Plan of Treatment Health Maintenance Due Date Last Done Comments DTAP/TDAP/TD VACCINES (1 - Tdap) 1985 HEPATITIS B VACCINES (1 of 3 - 19+ 3-dose series) 06/1985 HPV/Cotest (21-29) 12/24/1987 CERVICAL CANCER SCREENING 1996 HPV/Cotest (30-65) 1996 PAP SMEAR 1996 BREAST CANCER SCREENING 2006 COLORECTAL SCREENING 12/24/2011 Colorectal Cancer Screening 12/24/2011 FIT-DNA Q 3 years 12/24/2011 FIT/FOBT Q 1 year 12/24/2011 Flex Sig/CT Colonography Q 5 years 12/24/2011 ZOSTER VACCINE (1 of 2) 2016 INFLUENZA VACCINE (#1) 2024 Insurance [facility] BL[facility] PREFERR[facility] Care Teams Addresser Relationship Specialty Start Date End Date Tina Nunez MD PCP - General Family Practice 05/04/21
--- OUTSIDE RECORDS SUMMARY | 2025-03-03 14:19 | XMS_ITS | Clinical Summary ---
Author Organization [facility] Address [address] [place] [address] Care Team Providers Care Cheese Supervisor Name Role Phone Unavailable Primary Care Provider Unavailabl e Source Comments [facility],non-owned Affiliates and Associated Physician Practices is amultiple site organization consisting of ambulatory clinics and hospital sitesin [place], [place], [place] and [place]. This disclosure is being madepursuant to the Care Everywhere program and may not contain all information available regarding this patient. 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
--- OUTSIDE RECORDS SUMMARY | 2025-03-03 14:19 | XMS_ITS | Clinical Summary ---
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 Gender Identity Not on file Sexual Orientation [...] 8:02 AM CDT Height 165.1 cm (5' 5) 08/28/2022 8:02 AM CDT Body Mass Index 28.62 08/28/2022 8:02 AM CDT Plan of Treatment Health Maintenance Due Date Last Done Comments Breast Cancer Screening-Mammogram 1966 Cervical Cancer Screening 1966 Colon Cancer Screening-Colonoscopy 1966 Depression Screening 1966 Hepatitis C Screening 1966 Hepatitis B Screening 1984 Regular Well Visit/Exam 18-64 1984 Zoster Vaccine (1 of 2) 2016 Covid-19 Vaccine (2 - 2024- season) 2024 07/11/2020 Influenza Vaccine (#1) 2024 0, 02/16/2019, 02/05/2018, Additional history exists DTaP/Tdap/Td Vaccine (2 - Td or Tdap) 02/16/2029 02/16/2019 Pneumococcal vaccine <65 Aged Out No longer eligible based on patient's age to complete this topic [place] Care Teams Fertilizing Machine Operator Relationship Specialty Start Date End Date Tina Nunez MD [address] [facility] [address] [place], [place] [id number] PCP - General Family Medicine 03/23/22
== END 2025-03-03 13:17 | disposition home or self-care (01) ==
LOC: ANHFOHIMG 13:18
PROVIDERS: PCP Family Medicine; Visit Provider Nurse Practitioner
DX: R92.8 Other abnormal and inconclusive findings on diagnostic imaging of breast (principal); N64.4 Mastodynia
CPT/HCPCS: 76642; 77061; 77065; G0279